=== PATIENT | female | born 1960 | race Caucasian/White ===

== ENCOUNTER → 2020-10-22 14:46 | Outpatient (CLI) | payer OTHER, SELFPAY ==
[2020-10-22 15:43] LABS: Uric Acid 4.6 mg/dl (2.5-6.2)
[2020-10-22 15:56] LABS: Erythrocyte Sedimentation Rate 24 mm/hr (0-30)
[2020-10-24 08:25] LABS: RA Latex Turbid. <10.0 IU/mL (0.0-13.9)
[2020-10-24 19:11] LABS: Antinuclear Antibodies, IFA Negative (.)
== END ==
PROVIDERS: Visit Provider Family Medicine
DX: M15.4 Erosive (osteo)arthritis (principal)
CPT/HCPCS: 84550; 85651; 86038; 86431

== ENCOUNTER → 2021-01-28 09:55 | Outpatient (POV) | payer OTHER, SELFPAY ==
[2021-01-28 10:46] VITALS: BP 153/93; PULSE 100; RESP 18; O2SAT 98; BMI 24.9
--- NOTE | 2021-01-28 11:09 | HMH.PMCON ---
Assessment and Plan (1) Lumbar radiculopathy Status: Acute Category: Medical Code(s): M54.16 - Radiculopathy, lumbar region (2) Chronic low back pain Status: Acute Category: Medical Code(s): M54.50 - Low back pain, unspecified; G89.29 - Other chronic pain (3) Spinal stenosis Status: Acute Category: Medical Code(s): M48.00 - Spinal stenosis, site unspecified - Assessment and plan all Dx Assessment and Plan for all problems:: Patient has tried failed physical therapy, chiropractic adjustments, and at home exercises for greater than 6 weeks. Patient is currently being managed by Kennedy 10 mg / 3.5 mg three times a day that is prescribed by Dr. Florin Betancourt. We will schedule the patient for an MRI of her lumbar spine and would like to see her after the MRI. Patient has been instructed to contact the clinic with any concerns before the next appointment. Dr. Felix has reviewed this note and agrees with this plan of care. This note was dictated using voice recognition software and make contain errors or omissions. HPI - Data of Consult Patient: new to practice Consult date: 01/28/21 Requesting Physician: Dr. Florin Betancourt - Consult Narrative Reason for consult: chronic low back pain History of present illness: Ms. Fischer is a 60 year old female who presents today as a new patient. Patient has been referred by Dr. Florin Betancourt for worsening chronic low back pain. Patient says that she has been feeling some increasing pain, numbness, paresthesias on her bilateral posterior thighs, worse on the left, that originates on her low back that started in the last few months. Patient denies any trauma or falls recently. This is worse with prolonged activity. It is also worse when she's getting up or going down to a sitting position. Patient says the pain is relieved when she bends down. Per patient, patient had facet injections 7 years ago that did not help. Patient sees Dr. Remy in [place] who says she has some spinal stenosis. Dr. Remy says that she was not a surgical candidate then, but that was a few years ago. Patient has not had any recent imaging. Patient has tried and failed physical therapy and chiropractic adjustment for greater than 6 weeks in the past. Patient is currently on Kennedy 10/325mg three times a day which relieves some of the discomfort. Markus number is [id number] with an active morphine equivalent of 30. CC: Huyen Cristobal APRN [facility] History I have reviewed the patient's past medical history: Yes Medical History: Reports:: Anxiety, Depression, Hyperlipidemia, Hypertension *Have you ever received a pneumonia vaccine?: No *Have you received a flu vaccine this season?: Yes Other Medical History: Reports: Arthritis - *Social History Smoking Status: Current every day smoker Tobacco Type: cigarettes # Packs/Day (cigarettes): 1 Alcohol Intake: never Substance Use Type: denies use *Occupational Status:: unemployed Housing: other *Travel in the last 8 weeks: None - Psychiatric History Pschychiatric History:: Reports:: Anxiety, Depression Family Hx:: No significant family history Review of Systems - Review of Systems Review of Systems General: No recent weight changes, no fever, no sleep disturbances Respiratory: No cough, no shortness of air, no recurring pulmonary infections Cardiovascular/peripheral vascular: No chest pain, no palpitations, no edema, no shortness of breath Gastrointestinal: No new onset incontinence, normal bowel movements reported Genitourinary: No new onset incontinence Musculoskeletal: Low back pain Psychiatric: [Normal mood/affect] Neurological: [Denies weakness in extremities], [denies balance issues] Meds Home Medications Medication Instructions Recorded Confirmed Type hydrochlorothiazide 12.5 mg tablet 12.5 mg PO DAILY #90 tab 06/28/20 12/13/20 Rx venlafaxine 150 mg 150 mg PO DAILY #90 cap 08/23/20 12/13/20 Rx capsule,extended release 24 hr ator
== END ==
PROVIDERS: Visit Provider Clinical Nurse Specialist Family Health
DX: M54.16 Radiculopathy, lumbar region (principal); M54.50 Low back pain, unspecified; G89.29 Other chronic pain; M48.00 Spinal stenosis, site unspecified
CPT/HCPCS: 99202; G0463

== ENCOUNTER 2023-10-22 11:20 | Outpatient (POV) | payer MEDICAID, SELFPAY ==
--- NOTE | 2023-10-22 11:38 | EXP.PAIN.OV ---
HPI Data of Consult Patient: new to practice Consult date: 10/22/23 Requesting Physician: Esther Marte APRN Primary Care Provider: Florin Betancourt MD Consult Narrative Reason for consult: Low back pain, leg pain History of present illness: Ms. Fischer is a 62 year old female who presents today as a new patient. She is a referral from her primary care office. Today she rates her pain a 10 out of 10. Patient states she has chronic pain throughout her back that does radiate down into her bilateral lower extremities. Patient states this is an aching, throbbing sensation with numbness and tingling and does interfere with her ability perform activities of daily living such as cooking and cleaning. She states that it affects every aspect of her life and she has no quality of life due to the pain. Patient states that pretty much she stays at home and is not able to enjoy any free time with her family or her grandkids due to the pain. Patient has tried oral medications, heat and ice and topicals with minimal relief. Patient did try physical therapy however stated it made no difference of her overall pain. Patient has also had multiple injections in the past that included facet blocks but states this made no improvement. Patient also states that she has been to the chiropractor and that this does at least help provide temporary relief. Patient was seen by neurosurgeon in the past and was told she was not a surgical candidate at that time. Patient is interested in any help we may be able to provide. Patient is currently managed with alprazolam and Modena 10 mg 3 times a day from her PCP. Her Markus has been reviewed and is appropriate. CC: Esther Marte APRN [facility] Disclaimer: The information contained in this section may have been updated after the patient was seen, as this information can be updated by other users. Medical History Scoliosis Spinal stenosis Chronic low back pain Lumbar radiculopathy Essential hypertension Erosive osteoarthritis of multiple sites Mood disorder Anxiety Family History (Updated 10/22/23 @ 11:56 by Miley Bauer RN) Other Unknown family medical history Social History Smoking Status: Current every day smoker tobacco type: cigarettes packs per day: 1 alcohol intake: never substance use type: denies use current occupational status: unemployed Travel in the last 8 weeks: None housing: other Review of Systems Review of Systems Review of systems:: pertinent systems reviewed and negative unless documented below Review of systems (narrative): Review of Systems: General: No recent weight changes, no fever, no sleep disturbances Respiratory: No cough, no shortness of air, no recurring pulmonary infections Cardiovascular/peripheral vascular: No chest pain, no palpitations, no edema, no shortness of breath Gastrointestinal: No new onset incontinence, normal bowel movements reported Genitourinary: No new onset incontinence Musculoskeletal: Low back pain, leg pain Psychiatric: [Normal mood/affect] Neurological: [Denies weakness in extremities], [denies balance issues] Meds Home Medications and Allergies Home Medications ?Medication ?Instructions ?Recorded ?Confirmed ?Type losartan 100 mg tablet See Rx Instructions .Route 09/18/22 10/15/23 Rx .COMPLEX #90 tabs hydrochlorothiazide 12.5 mg tablet 12.5 mg PO DAILY #90 tabs 10/20/22 10/15/23 Rx atorvastatin 20 mg tablet See Rx Instructions .Route 11/24/22 10/15/23 Rx .COMPLEX #90 tabs ezetimibe 10 mg tablet See Rx Instructions .Route 11/24/22 10/15/23 Rx .COMPLEX #90 tabs venlafaxine 150 mg 150 mg PO DAILY #90 caps 11/28/22 10/15/23 Rx capsule,extended release 24 hr bupropion HCl 150 mg 24 hr tablet, 150 mg PO DAILY #90 tabs 12/15/22 10/15/23 Rx extended release metoprolol succinate 200 mg 200 mg PO DAILY #90 tabs 12/15/22 10/15/23 Rx tablet,extended release 24 hr (Toprol XL) alprazolam 0.5 mg tablet (Xanax) 0.5 mg PO BID PRN anxiety #60 tabs 07/23/23 10/15/23 Rx promethazine 25 mg tablet 25 mg PO TID PRN nausea and 08/20/23 10/15/23 Rx vomiting #60 tabs hydrocodone 10 mg-acetaminophen See Rx Instructions .Route 10/15/23 10/15/23 Rx 325 mg tablet .COMPLEX #90 tabs New Prescriptions to Start Prescriptions: Allergies Allergy/AdvReac Type Severity Reaction Status Date / Time amoxicillin [From Augmentin] AdvReac Severe Swelling Verified 10/15/23 09:37 of Hands clavulanic acid AdvReac Severe Swelling Verified 10/15/23 09:37 [From Augmentin] of Hands Sulfa (Sulfonamide AdvReac Severe Hives Verified 10/15/23 09:37 Antibiotics) Objective Narrative: Physical Exam: General: Alert and oriented x3, no acute distress, pleasant and cooperative Lungs: Respirations even and unlabored, symmetrical chest expansion Eyes: PERRL Musculoskeletal: Flexion and extension of lumbar [spine] somewhat guarded secondary to pain, [antalgic gait noted] Neurological: Speech clear, no gross sensory deficit Additional findings Additional findings: Lumbar MRI spine with and without contrast Findings: Study detail significant degraded by patient motion despite repetition of sequences and repeated counseling of the patient. Severe level of rotary scoliotic curvature with advanced osteoarthritic degeneration and degenerative disc disease. Marrow signal is generally age-appropriate. Distal cord and conus medullaris have a grossly normal appearance with the tip of the conus at the level of T1-T2 No significant spinal stenosis from T9-10 through T12-L1 L1-2: Advanced degeneration of the disc with leftward shift of L2 relative L1. Mild circumferential disc bulge. Mild ligamentous hypertrophy and facet arthropathy. These factors resulted in mild spinal stenosis to 10 mm. Left foraminal stenosis by endplate osteophyte/disc complex. L2-L3: Severe degeneration of the disc with a moderate concentric disc bulge. Moderate ligamentum hypertrophy and facet arthropathy contouring the thecal sac. Moderate spinal stenosis to 8 to 9 mm. Bilateral foraminal stenosis by endplate osteophyte/disc complex, left greater than right. L3-L4: Severe degeneration of the disc with mild concentric disc bulge partially overlaid by endplate spur. Moderate ligamentous hypertrophy and facet arthropathy. Moderate spinal stenosis to 7 mm. Bilateral foraminal stenosis by endplate osteophyte/disc complex left greater than right L4-L5: Disc desiccation with mild degenerative narrowing. Large concentric disc bulge extending slightly above and below the level of the disc space. Severe ligamentous hypertrophy and facet arthropathy triangulating the thecal sac. These factors contribute to severe Spinal stenosis narrowing the thecal sac to about 4 mm in the midline. Severe right and mild left foraminal stenosis by endplate osteophyte/disc complex L5-S1: Desiccation and mild degenerative narrowing of the disc with a mild concentric disc bulge augmented by a central protrusion. Moderate ligamentous hypertrophy. Severe hypertrophic facet arthropathy disorder in the thecal sac. These factors resulted in moderate spinal stenosis to 8 mm. Mild right and moderate left foraminal stenosis. Assessment and Plan *Assessment and plan (1) Lumbar radiculopathy: Status: Acute Category: Medical Code(s): M54.16 - Radiculopathy, lumbar region (2) Chronic low back pain: Status: Acute Qualifiers: Back pain laterality: midline Sciatica presence: with sciatica Sciatica laterality: sciatica laterality unspecified Qualified Code(s): M54.40 - Lumbago with sciatica, unspecified side Category: Medical Code(s): M54.50 - Low back pain, unspecified; G89.29 - Other chronic pain (3) Spinal stenosis: Status: Acute Qualifiers: Spinal region: unspecified Qualified Code(s): M48.00 - Spinal stenosis, site unspecified Category: Medical Code(s): M48.00 - Spinal stenosis, site unspecified (4) Scoliosis: Status: Acute Category: Medical Code(s): M41.9 - Scoliosis, unspecified (5) Degenerative disc disease, lumbar: Status: Acute Category: Medical Code(s): M51.36 - Other intervertebral disc degeneration, lumbar region Plan Patient is experiencing severe pain throughout her low back and legs with limited range of motion of her lumbar spine. I did discuss at length with the patient that she may benefit from lumbar epidural steroid injection as well as intrathecal pain pump trial. Risk and benefits and educational handouts were given regarding these options and she would like to proceed forward with both. Patient has tried and failed conservative therapy including continued at home stretching exercise for longer than 12 weeks. Patient does have severe scoliosis and severe narrowing multilevel of her lumbar spine. Patient will be sent for psychological evaluation and if she is deemed an appropriate candidate we will proceed forward with a intrathecal pain pump trial in future. I will also submit for a lumbar epidural steroid injection at L4-L5 under fluoroscopy. Patient has been instructed to contact the clinic with any concerns before the next appointment. Dr. Felix has reviewed this note and agrees with this plan of care. This note was dictated using voice recognition software and make contain errors or omissions. All injections are used with Lidocaine or Bupivacaine and Depo Medrol.
[2023-10-22 11:55] VITALS: BP 133/53; PULSE 74; RESP 18; O2SAT 97; BMI 25.7
== END 2023-10-22 23:59 | disposition home or self-care (01) ==
LOC: SC.PAIN 11:21
PROVIDERS: PCP Family Medicine; Visit Provider Nurse Practitioner Family
DX: M51.16 Intervertebral disc disorders with radiculopathy, lumbar region (principal); M48.00 Spinal stenosis, site unspecified; M41.9 Scoliosis, unspecified; F17.210 Nicotine dependence, cigarettes, uncomplicated; Z73.89 Other problems related to life management difficulty; Z79.899 Other long term (current) drug therapy
CPT/HCPCS: 99202; G0463

== ENCOUNTER 2023-11-10 09:19 | Day surgery (SDC) | payer MEDICAID, SELFPAY ==
[2023-11-10 09:30] VITALS: BP 142/80; PULSE 83; RESP 16; TEMP 36.4; O2SAT 96; BMI 25.7
[2023-11-10] MEDS: methylPREDNISolone ACETATE 80MG/ML VIAL 80 MG (09:46)
[2023-11-10 09:49] VITALS: BP 157/74; PULSE 88; RESP 18; O2SAT 96
[2023-11-10 09:50] VITALS: BP 157/74; PULSE 89; RESP 18; O2SAT 96
[2023-11-10 09:59] VITALS: BP 145/71; PULSE 60; RESP 18; O2SAT 96
--- NOTE | 2023-11-10 10:13 | EXP.PAIN.PRO ---
Procedure Date: 11/10/23 Time: 09:30 Anesthesiologist:: Felipe Buckner CRNA Complications:: None Pre-procedure Diagnosis:: Degenerative disc lumbar spine multilevels. Lumbar radiculopathy. Post-procedure Diagnosis:: Same. Indications for Procedure:: Patient is a very pleasant 62-year-old female that comes our clinic today for lumbar epidural steroid injection at the L4-5 level. Patient describes low back pain is constant, dull, aching. She also reports bilateral hip and leg radicular symptoms in the hamstrings. She rates her pain 8/10. Procedure Details:: Procedure: Lumbar epidural steroid injection under fluoroscopy Informed consent was obtained and the risks and benefits of the procedure were explained to the patient. The patient was taken to the procedure room and noninvasive monitors placed, including noninvasive blood pressure cuff and pulse oximeter. The back was viewed using C-arm Fluoroscopy and prepped using Chloraprep as a cleansing solution and the L4-L5 interspace was palpated. Skin and subcutaneous tissues were anesthetized using lidocaine 1.5% and a 25-gauge needle. After this, an 18-gauge Touhy epidural needle was placed into the L4-L5 interspace and advanced using fluoroscopic guidance and loss of resistance to air until the epidural space was encountered. After confirmation of needle placement in the epidural space, with dye, a solution containing normal saline, 3 mL and Depo-Medrol 80 mg were incrementally injected into the lumbar epidural space. The patient tolerated the procedure well with no complications. The patient was observed in the Pain Clinic and then discharged home neurologically intact. Plan and Disposition:: Patient was discharged without incident.
--- NOTE | 2023-11-10 10:15 | EXP.PAIN.PRO ---
Procedure Date: 11/10/23 Time: 09:50 Anesthesiologist:: Felipe Buckner CRNA Complications:: None
== END 2023-11-10 09:59 | disposition home or self-care (01) ==
PROVIDERS: PCP Family Medicine; Visit Provider Nurse Anesthetist, Certified Registered
DX: M51.16 Intervertebral disc disorders with radiculopathy, lumbar region (principal)
CPT/HCPCS: 62323; J1010

== ENCOUNTER 2023-12-17 08:52 | Outpatient (POV) | payer MEDICAID, SELFPAY ==
--- NOTE | 2023-12-17 09:40 | EXP.PAIN.SOA ---
[facility] Disclaimer: The information contained in this section may have been updated after the patient was seen, as this information can be updated by other users. Medical History Scoliosis Spinal stenosis Chronic low back pain Lumbar radiculopathy Essential hypertension Erosive osteoarthritis of multiple sites Mood disorder Anxiety Family History Other Unknown family medical history Social History Smoking Status: Current every day smoker tobacco type: cigarettes packs per day: 1 alcohol intake: never substance use type: denies use current occupational status: unemployed Travel in the last 8 weeks: None housing: other PM Subjective & Objective Subjective Subjective:: Patient is a pleasant 63-year-old female who presents today for follow-up of lumbar epidural steroid injection L4-L5 on 11/10/2023. Today she rates her pain a 4 out of 10. She states that she has had at least 75% improvement following this injection and feels like it still helping. Patient does state that she is felt so well that she has overdone it at times with certain activities. Patient states she has been able to do more around her home than she has done for years. She is prescribed alprazolam and Secor from her PCP. Her Markus has been reviewed and is appropriate. Review of Systems: General: No recent weight changes, no fever, no sleep disturbances Respiratory: No cough, no shortness of air, no recurring pulmonary infections Cardiovascular/peripheral vascular: No chest pain, no palpitations, no edema, no shortness of breath Gastrointestinal: No new onset incontinence, normal bowel movements reported Genitourinary: No new onset incontinence Musculoskeletal: Low back pain Psychiatric: [Normal mood/affect] Neurological: [Denies weakness in extremities], [denies balance issues] Pain at rest (0-10 scale): 4 Objective Objective:: Physical Exam: General: Alert and oriented x3, no acute distress, pleasant and cooperative Lungs: Respirations even and unlabored, symmetrical chest expansion Eyes: PERRL Musculoskeletal: Flexion and extension of lumbar [spine] somewhat guarded secondary to pain, [antalgic gait noted] Neurological: Speech clear, no gross sensory deficit Has patient had previous pain injection?: Yes Percent improvement in pain since last injection: 75% Conservative treatment options previously tried: Home exercise plan Length of treatment: Longer than 12 weeks Meds Home Medications and Allergies Home Medications ?Medication ?Instructions ?Recorded ?Confirmed ?Type atorvastatin 20 mg tablet See Rx Instructions .Route 11/24/22 12/10/23 Rx .COMPLEX #90 tabs ezetimibe 10 mg tablet See Rx Instructions .Route 11/24/22 12/10/23 Rx .COMPLEX #90 tabs venlafaxine 150 mg 150 mg PO DAILY #90 caps 11/28/22 12/10/23 Rx capsule,extended release 24 hr bupropion HCl 150 mg 24 hr tablet, 150 mg PO DAILY #90 tabs 12/15/22 12/10/23 Rx extended release metoprolol succinate 200 mg 200 mg PO DAILY #90 tabs 12/15/22 12/10/23 Rx tablet,extended release 24 hr (Toprol XL) promethazine 25 mg tablet 25 mg PO TID PRN nausea and 08/20/23 12/10/23 Rx vomiting #60 tabs losartan 100 mg tablet See Rx Instructions .Route 10/27/23 12/10/23 Rx .COMPLEX #90 tabs alprazolam 0.5 mg tablet (Xanax) 0.5 mg PO TID PRN anxiety #90 tabs 11/12/23 12/10/23 Rx hydrochlorothiazide 12.5 mg tablet 12.5 mg PO DAILY #90 tabs 11/12/23 12/10/23 Rx hydrocodone 10 mg-acetaminophen See Rx Instructions .Route 12/10/23 12/10/23 Rx 325 mg tablet .COMPLEX #90 tabs New Prescriptions to Start Prescriptions: Allergies Allergy/AdvReac Type Severity Reaction Status Date / Time amoxicillin [From Augmentin] AdvReac Severe Swelling Verified 12/10/23 09:46 of Hands clavulanic acid AdvReac Severe Swelling Verified 12/10/23 09:46 [From Augmentin] of Hands Sulfa (Sulfonamide AdvReac Severe Hives Verified 12/10/23 09:46 Antibiotics) Assessment and Plan *Assessment and plan (1) Degenerative disc disease, lumbar: Status: Acute Category: Medical Code(s): M51.36 - Other intervertebral disc degeneration, lumbar region (2) Lumbar radiculopathy: Status: Acute Category: Medical Code(s): M54.16 - Radiculopathy, lumbar region Plan Patient has had significant improvement and does not require any additional interventions at this time. Patient will return to clinic in 6 weeks for reevaluation of symptoms and plan of care. Patient has been instructed to contact the clinic with any concerns before the next appointment. Dr. Felix has reviewed this note and agrees with this plan of care. This note was dictated using voice recognition software and make contain errors or omissions. All injections are used with Lidocaine or Bupivacaine and Depo Medrol.
[2023-12-17 09:56] VITALS: BP 152/85; PULSE 81; RESP 18; O2SAT 95; BMI 25.2
== END 2023-12-17 23:59 | disposition home or self-care (01) ==
LOC: SC.PAIN 08:54
PROVIDERS: PCP Family Medicine; Visit Provider Nurse Practitioner Family
DX: M51.16 Intervertebral disc disorders with radiculopathy, lumbar region (principal); F17.210 Nicotine dependence, cigarettes, uncomplicated
CPT/HCPCS: 99212; G0463

== ENCOUNTER 2024-01-13 11:32 | Outpatient (POV) | payer MEDICAID, SELFPAY ==
--- NOTE | 2024-01-13 11:46 | A.OFFVIS_ITS ---
[facility] [place] Disclaimer: The information contained in this section may have been updated after the patient was seen, as this information can be updated by other users. Medical History Scoliosis Spinal stenosis Chronic low back pain Lumbar radiculopathy Essential hypertension Erosive osteoarthritis of multiple sites Mood disorder Anxiety Family History Other Unknown family medical history Social History Smoking Status: Current every day smoker tobacco type: cigarettes packs per day: 1 alcohol intake: never substance use type: denies use current occupational status: unemployed Travel in the last 8 weeks: None housing: other PM Subjective & Objective Subjective Subjective:: Patient is a pleasant 63-year-old female who presents today for worsening pain in. Today she rates her pain a 9 out of 10. She does state all of this pain is just along her left buttocks area and that it does stay right there no radiating symptoms into her legs. She states that it is an aching, throbbing sensation is worse with prolonged positioning such as sitting. She states that the increased pressure causes significant pain and does interfere with her ability perform activities of daily living such as cooking and cleaning. Patient did previously have a lumbar epidural on November 09 that did provide 75% improvement and she still feels like this is working well. She does state that she has added dilemma because her insurance she is losing at the end of December and that she is meeting with a specialist to see what she can do however it appears that as of right now she will be without insurance through that month and it will start back in February.She is prescribed alprazolam and Tamiment from her PCP. Her Markus has been reviewed and is appropriate. Review of Systems: General: No recent weight changes, no fever, no sleep disturbances Respiratory: No cough, no shortness of air, no recurring pulmonary infections Cardiovascular/peripheral vascular: No chest pain, no palpitations, no edema, no shortness of breath Gastrointestinal: No new onset incontinence, normal bowel movements reported Genitourinary: No new onset incontinence Musculoskeletal: Left buttocks pain Psychiatric: [Normal mood/affect] Neurological: [Denies weakness in extremities], [denies balance issues] Pain at rest (0-10 scale): 9 Objective Objective:: Physical Exam: General: Alert and oriented x3, no acute distress, pleasant and cooperative Lungs: Respirations even and unlabored, symmetrical chest expansion Eyes: PERRL Musculoskeletal: Flexion and extension of lumbar [spine] somewhat guarded secondary to pain, [antalgic gait noted] extreme point tenderness along the left piriformis muscle Neurological: Speech clear, no gross sensory deficit Has patient had previous pain injection?: No Conservative treatment options previously tried: Home exercise plan Length of treatment: Longer than 12 weeks Meds Home Medications and Allergies Home Medications ?Medication ?Instructions ?Recorded ?Confirmed ?Type promethazine 25 mg tablet 25 mg PO TID PRN nausea and 08/20/23 12/17/23 Rx vomiting #60 tabs losartan 100 mg tablet See Rx Instructions .Route 10/27/23 12/17/23 Rx .COMPLEX #90 tabs alprazolam 0.5 mg tablet (Xanax) 0.5 mg PO TID PRN anxiety #90 tabs 11/12/23 12/17/23 Rx hydrochlorothiazide 12.5 mg tablet 12.5 mg PO DAILY #90 tabs 11/12/23 12/17/23 Rx atorvastatin 20 mg tablet See Rx Instructions .Route 12/28/23 Rx .COMPLEX #90 tabs ezetimibe 10 mg tablet See Rx Instructions .Route 12/28/23 Rx .COMPLEX #90 tabs bupropion HCl 150 mg 24 hr tablet, 150 mg PO DAILY #90 tabs 01/06/24 Rx extended release metoprolol succinate 200 mg 200 mg PO DAILY #90 tabs 01/06/24 Rx tablet,extended release 24 hr (Toprol XL) venlafaxine 150 mg 150 mg PO DAILY #90 caps 01/06/24 Rx capsule,extended release 24 hr hydrocodone 10 mg-acetaminophen See Rx Instructions .Route 01/07/24 Rx 325 mg tablet .COMPLEX #90 tabs New Prescriptions to Start Prescriptions: Allergies Allergy/AdvReac Type Severity Reaction Status Date / Time amoxicillin (From Augmentin) AdvReac Severe Swelling Verified 12/10/23 09:46 of Hands clavulanic acid (From AdvReac Severe Swelling Verified 12/10/23 09:46 Augmentin) of Hands Sulfa (Sulfonamide AdvReac Severe Hives Verified 12/10/23 09:46 Antibiotics) Assessment and Plan *Assessment and plan (1) Piriformis syndrome of left side: Status: Acute Category: Medical Code(s): G57.02 - Lesion of sciatic nerve, left lower limb (2) Left buttock pain: Status: Acute Category: Medical Code(s): M79.18 - Myalgia, other site (3) Myofascial pain on left side: Status: Acute Category: Medical Code(s): M79.18 - Myalgia, other site Plan Patient is experiencing significant pain in her left buttocks with extreme point tenderness along her left piriformis muscle. We have discussed the possibility of this injection in the past due to this being a chronic pain however previously her overall low back and leg symptoms were more bothersome so we put this off. Today due to the fact that this is the only thing causing significant disability and pain I have discussed with the patient that I do believe she would benefit from a left piriformis injection. Risk and benefits were discussed with patient and she would like to proceed forward with this plan of care. Patient has tried and failed conservative therapy including continued at home stretching exercise for longer than 12 weeks. We will schedule the patient for a left piriformis injection. This injection will be done without fluoroscopic guidance or ultrasound. Patient has been instructed to contact the clinic with any concerns before the next appointment. Dr. Felix has reviewed this note and agrees with this plan of care. This note was dictated using voice recognition software and make contain errors or omissions. All injections are used with Lidocaine or Bupivacaine and Depo Medrol.
[2024-01-13 12:56] VITALS: BP 113/68; PULSE 75; RESP 16; O2SAT 98; BMI 25.2
== END 2024-01-13 23:59 | disposition home or self-care (01) ==
LOC: SC.PAIN 11:33
PROVIDERS: PCP Family Medicine; Visit Provider Nurse Practitioner Family
DX: G57.02 Lesion of sciatic nerve, left lower limb (principal); M79.18 Myalgia, other site; F17.210 Nicotine dependence, cigarettes, uncomplicated; Z73.89 Other problems related to life management difficulty
CPT/HCPCS: 99212; G0463

== ENCOUNTER 2024-01-19 10:12 | Day surgery (SDC) | payer MEDICAID, SELFPAY ==
[2024-01-19 10:30] VITALS: BP 148/58; PULSE 76; RESP 16; TEMP 36.4; O2SAT 100; BMI 24.7
[2024-01-19] MEDS: IOPAMIDOL-200 (41%);10ML VIAL 10 ML IV (10:42)
[2024-01-19] MEDS: methylPREDNISolone ACETATE 80MG/ML VIAL 80 MG (10:43)
[2024-01-19] MEDS: BUPIVACAINE 0.25% 10ML INJ 25 MG IJ (10:43)
[2024-01-19] MEDS: LIDOCAINE 1% 5ML PF VIAL 5 ML (10:43)
[2024-01-19 10:44] VITALS: BP 146/95; PULSE 79; RESP 18; O2SAT 96
[2024-01-19 10:45] VITALS: BP 146/95; PULSE 79; RESP 18; O2SAT 97
[2024-01-19 10:53] VITALS: BP 130/79; PULSE 73; RESP 16; O2SAT 97
--- NOTE | 2024-01-19 13:19 | P.PCN_ITS ---
Procedure Date: 01/19/24 Time: 09:30 Anesthesiologist:: Felipe Buckner CRNA Complications:: None Pre-procedure Diagnosis:: Left piriformis syndrome Post-procedure Diagnosis:: Same Indications for Procedure:: Patient is a pleasant 63-year-old female comes our clinic today for a left piriformis injection. Patient describes left buttock pain as constant, dull, aching. Patient rates her pain 9/10. She has difficulty sitting. Procedure Details:: Details of procedure explained to the patient. The patient taken procedure room placed in the prone position on fluoroscopy table. The area over the left buttock was cleaned using chlorhexidine as a cleansing solution. Using a 22- gauge 3 and half inch spinal needle and fluoroscopy guidance the left piriformis muscle was accessed with ease. Needle position was confirmed with 0.5 cc of of contrast dye and a lateral spread. After negative aspiration, 4 cc of 1% lidocaine and 40 mg of Depo-Medrol was injected. Patient tolerated procedure without difficulty. There were no complications. Plan and Disposition:: Patient was discharged without incident.
== END 2024-01-19 10:53 | disposition home or self-care (01) ==
LOC: SC.PAINP 10:13
PROVIDERS: PCP Family Medicine; Visit Provider Nurse Anesthetist, Certified Registered
DX: G57.02 Lesion of sciatic nerve, left lower limb (principal)
CPT/HCPCS: 20552; 77002; J1010; Q9966

== ENCOUNTER 2024-03-17 11:33 | Outpatient (POV) | payer BC, SELFPAY ==
--- NOTE | 2024-03-17 11:58 | EXP.PAIN.SOA ---
[facility] Disclaimer: The information contained in this section may have been updated after the patient was seen, as this information can be updated by other users. Medical History Scoliosis Spinal stenosis Chronic low back pain Lumbar radiculopathy Essential hypertension Erosive osteoarthritis of multiple sites Mood disorder Anxiety Family History Other Unknown family medical history Social History (Updated 03/10/24 @ 10:37 by Ana Maria Rodriguez MA) Smoking Status: Current every day smoker tobacco type: cigarettes packs per day: 1 alcohol intake: never substance use type: denies use current occupational status: other Travel in the last 8 weeks: None housing: other PM Subjective & Objective Subjective Subjective:: Patient is a pleasant 63-year-old female who presents today for worsening back pain. Today she rates her pain a 8 out of 10. She denies any new injury or trauma. She is experiencing worsening pain in her back that does radiate down into her bilateral lower extremities. Patient states this is an aching, throbbing sensation with numbness and tingling and does interfere with her ability perform activities of daily living such as cooking and cleaning. Patient did previously have a lumbar epidural that did provide significant relief of 75%. This injection was done back in October and did last at least 3 months. Patient was experiencing worsening pain in January however had issues with her insurance and was unable to get scheduled for a repeat injection. Today she states that she has worked out of her insurance issues and would like to proceed forward because her pain is so severe. Patient has tried oral medications, heat and ice and topicals with minimal relief. Patient did try physical therapy however stated it made no difference of her overall pain. Patient has tried chiropractor therapy as well with minimal relief and has been to a neurosurgeon who was not recommending surgical intervention. Patient is currently managed with alprazolam and Sutter 10 mg 3 times a day from her PCP. Her Markus has been reviewed and is appropriate. Review of Systems: General: No recent weight changes, no fever, no sleep disturbances Respiratory: No cough, no shortness of air, no recurring pulmonary infections Cardiovascular/peripheral vascular: No chest pain, no palpitations, no edema, no shortness of breath Gastrointestinal: No new onset incontinence, normal bowel movements reported Genitourinary: No new onset incontinence Musculoskeletal: Low back pain, bilateral leg pain Psychiatric: [Normal mood/affect] Neurological: [Denies weakness in extremities], [denies balance issues] Pain at rest (0-10 scale): 8 Objective Objective:: Physical Exam: General: Alert and oriented x3, no acute distress, pleasant and cooperative Lungs: Respirations even and unlabored, symmetrical chest expansion Eyes: PERRL Musculoskeletal: Flexion and extension of lumbar [spine] somewhat guarded secondary to pain, [antalgic gait noted] positive leg raise Neurological: Speech clear, no gross sensory deficit Has patient had previous pain injection?: No Conservative treatment options previously tried: Home exercise plan Length of treatment: Longer than 12 weeks Meds Home Medications and Allergies Home Medications ?Medication ?Instructions ?Recorded ?Confirmed ?Type promethazine 25 mg tablet 25 mg PO TID PRN nausea and 08/20/23 03/10/24 Rx vomiting #60 tabs losartan 100 mg tablet See Rx Instructions .Route 10/27/23 03/10/24 Rx .COMPLEX #90 tabs hydrochlorothiazide 12.5 mg tablet 12.5 mg PO DAILY #90 tabs 11/12/23 03/10/24 Rx atorvastatin 20 mg tablet See Rx Instructions .Route 12/28/23 03/10/24 Rx .COMPLEX #90 tabs ezetimibe 10 mg tablet See Rx Instructions .Route 12/28/23 03/10/24 Rx .COMPLEX #90 tabs bupropion HCl 150 mg 24 hr tablet, 150 mg PO DAILY #90 tabs 01/06/24 03/10/24 Rx extended release metoprolol succinate 200 mg 200 mg PO DAILY #90 tabs 01/06/24 03/10/24 Rx tablet,extended release 24 hr (Toprol XL) venlafaxine 150 mg 150 mg PO DAILY #90 caps 01/06/24 03/10/24 Rx capsule,extended release 24 hr alprazolam 0.5 mg tablet (Xanax) 0.5 mg PO TID PRN anxiety #90 tabs 02/11/24 03/10/24 Rx hydrocodone 10 mg-acetaminophen See Rx Instructions .Route 03/10/24 03/10/24 Rx 325 mg tablet .COMPLEX #90 tabs New Prescriptions to Start Prescriptions: Allergies Allergy/AdvReac Type Severity Reaction Status Date / Time amoxicillin (From Augmentin) AdvReac Severe Swelling Verified 03/10/24 10:42 of Hands clavulanic acid (From AdvReac Severe Swelling Verified 03/10/24 10:42 Augmentin) of Hands Sulfa (Sulfonamide AdvReac Severe Hives Verified 03/10/24 10:42 Antibiotics) Assessment and Plan *Assessment and plan (1) Lumbar radiculopathy: Status: Acute Category: Medical Code(s): M54.16 - Radiculopathy, lumbar region (2) Chronic low back pain: Status: Acute Qualifiers: Back pain laterality: midline Sciatica presence: with sciatica Sciatica laterality: sciatica laterality unspecified Qualified Code(s): M54.40 - Lumbago with sciatica, unspecified side Category: Medical Code(s): M54.50 - Low back pain, unspecified; G89.29 - Other chronic pain (3) Degenerative disc disease, lumbar: Status: Acute Category: Medical Code(s): M51.369 - Other intervertebral disc degeneration, lumbar region without mention of lumbar back pain or lower extremity pain Plan Patient is experiencing worsening pain in her low back with numbness and tingling into her lower extremities. Patient did have limited range of motion of her lumbar spine with a positive leg raise. I did discuss with patient that I do believe they would benefit from a lumbar epidural steroid injection. Risk and benefits were discussed with patient and the patient would like to proceed forward with this plan of care. Patient is not on any blood thinners. Patient has tried and failed conservative therapy including continued at home stretching exercise for longer than 12 weeks between injections. Patient did previously have a lumbar epidural back in October that provided 75% relief and lasted longer than 3 months. We will schedule the patient for an LESI L4-L5 under fluoroscopy. Patient has been instructed to contact the clinic with any concerns before the next appointment. Dr. Felix has reviewed this note and agrees with this plan of care. This note was dictated using voice recognition software and make contain errors or omissions. All injections are used with Lidocaine, Bupivacaine and Depo Medrol. Occasionally urine drug screen is needed to verify patient's compliance with our office pain contract. This is ordered based off specific treatments related to chronic pain with the potential to abuse certain medications.
[2024-03-17 12:19] VITALS: BP 132/71; PULSE 82; RESP 18; O2SAT 96; BMI 24.9
== END 2024-03-17 23:59 | disposition home or self-care (01) ==
LOC: SC.PAIN 11:33
PROVIDERS: PCP Family Medicine; Visit Provider Nurse Practitioner Family
DX: M51.16 Intervertebral disc disorders with radiculopathy, lumbar region (principal); M54.40 Lumbago with sciatica, unspecified side; F17.210 Nicotine dependence, cigarettes, uncomplicated; Z73.89 Other problems related to life management difficulty
CPT/HCPCS: 99212; G0463

== ENCOUNTER 2024-04-05 07:42 | Day surgery (SDC) | payer BC, SELFPAY ==
[2024-04-05 08:18] VITALS: BP 175/88; PULSE 75; RESP 16; TEMP 36.4; O2SAT 97; BMI 24.9
[2024-04-05] MEDS: methylPREDNISolone ACETATE 80MG/ML VIAL 80 MG (08:25)
[2024-04-05 08:33] VITALS: BP 135/74; PULSE 71; RESP 16; O2SAT 96
[2024-04-05 08:52] VITALS: BP 153/98; PULSE 75; RESP 18; O2SAT 98
[2024-04-05 08:56] VITALS: BP 153/98; PULSE 75; RESP 18; O2SAT 98
--- NOTE | 2024-04-05 09:10 | EXP.PAIN.PRO ---
Procedure Date: 04/05/24 Time: 08:30 Anesthesiologist:: Felipe Buckner CRNA Complications:: None Pre-procedure Diagnosis:: Degenerative disc lumbar spine multilevels. Lumbar radiculopathy. Post-procedure Diagnosis:: Same. Indications for Procedure:: Patient is a pleasant 63-year-old female who comes our clinic today for lumbar epidural steroid injection. Patient describes low lumbar back pain as well as bilateral hip and leg radicular symptoms with time. She rates her pain 7/10. Procedure Details:: Procedure: Lumbar epidural steroid injection under fluoroscopy Informed consent was obtained and the risks and benefits of the procedure were explained to the patient. The patient was taken to the procedure room and noninvasive monitors placed, including noninvasive blood pressure cuff and pulse oximeter. The back was viewed using C-arm Fluoroscopy and prepped using Chloraprep as a cleansing solution and the L4-L5 interspace was palpated. Skin and subcutaneous tissues were anesthetized using lidocaine 1.5% and a 25-gauge needle. After this, an 18-gauge Touhy epidural needle was placed into the L4-L5 interspace and advanced using fluoroscopic guidance and loss of resistance to air until the epidural space was encountered. After confirmation of needle placement in the epidural space, with dye, a solution containing normal saline, 3 mL and Depo-Medrol 80 mg were incrementally injected into the lumbar epidural space. The patient tolerated the procedure well with no complications. The patient was observed in the Pain Clinic and then discharged home neurologically intact. Plan and Disposition:: Patient was discharged without incident.
== END 2024-04-05 08:33 | disposition home or self-care (01) ==
LOC: SC.PAINP 07:43
PROVIDERS: PCP Family Medicine; Visit Provider Nurse Anesthetist, Certified Registered
DX: M51.16 Intervertebral disc disorders with radiculopathy, lumbar region (principal)
CPT/HCPCS: 62323; J1010

== ENCOUNTER 2024-04-21 08:51 | Outpatient (POV) | payer BC, SELFPAY ==
--- NOTE | 2024-04-21 09:27 | A.OFFVIS_ITS ---
[facility] Disclaimer: The information contained in this section may have been updated after the patient was seen, as this information can be updated by other users. Medical History Scoliosis Spinal stenosis Chronic low back pain Lumbar radiculopathy Essential hypertension Erosive osteoarthritis of multiple sites Mood disorder Anxiety Family History Other Unknown family medical history Social History (Updated 04/08/24 @ 09:56 by Ana Maria Rodriguez MA) Smoking Status: Current every day smoker tobacco type: cigarettes packs per day: 1 alcohol intake: never substance use type: denies use current occupational status: other Travel in the last 8 weeks: None housing: other PM Subjective & Objective Subjective Subjective:: Patient is a pleasant 63-year-old female who presents today for follow-up of lumbar epidural steroid injection L4-L5 on 04/05/2024. Today she rates her pain a 8 out of 10. She denies any new injury or trauma. She does state that this injection did not do as well as her last 1 that she had in October providing 75% relief and lasted 3 months. She does feel like the pain is a little bit different and has moved. Patient is stating that it is more in her low back and hips with the left side still being the worst side and that she has a pulling sensation into her upper thighs. It continues to interfere with her ability perform activities of daily living such as cooking and cleaning. Patient has tried oral medications, heat and ice and topicals with minimal relief. Patient has tried both physical therapy and chiropractor therapy with minimal relief and is not a candidate for surgical intervention from per neurosurgeon. Patient is currently managed with alprazolam and Marshall 10 mg 3 times a day from her PCP. Her Markus has been reviewed and is appropriate. Review of Systems: General: No recent weight changes, no fever, no sleep disturbances Respiratory: No cough, no shortness of air, no recurring pulmonary infections Cardiovascular/peripheral vascular: No chest pain, no palpitations, no edema, no shortness of breath Gastrointestinal: No new onset incontinence, normal bowel movements reported Genitourinary: No new onset incontinence Musculoskeletal: Low back pain, bilateral hip pain Psychiatric: [Normal mood/affect] Neurological: [Denies weakness in extremities], [denies balance issues] Pain at rest (0-10 scale): 8 Objective Objective:: Physical Exam: General: Alert and oriented x3, no acute distress, pleasant and cooperative Lungs: Respirations even and unlabored, symmetrical chest expansion Eyes: PERRL Musculoskeletal: Flexion and extension of lumbar [spine] somewhat guarded secondary to pain, [antalgic gait noted] point tenderness along bilateral SIs with positive bilateral Denise's, Liam's, Gaenslen's, compression and distraction exam Neurological: Speech clear, no gross sensory deficit Has patient had previous pain injection?: Yes Percent improvement in pain since last injection: Unable to determine Conservative treatment options previously tried: Home exercise plan Length of treatment: Longer than 12 weeks Meds Home Medications and Allergies Home Medications ?Medication ?Instructions ?Recorded ?Confirmed ?Type losartan 100 mg tablet See Rx Instructions .Route 10/27/23 04/08/24 Rx .COMPLEX #90 tabs hydrochlorothiazide 12.5 mg tablet 12.5 mg PO DAILY #90 tabs 11/12/23 04/08/24 Rx atorvastatin 20 mg tablet See Rx Instructions .Route 12/28/23 04/08/24 Rx .COMPLEX #90 tabs ezetimibe 10 mg tablet See Rx Instructions .Route 12/28/23 04/08/24 Rx .COMPLEX #90 tabs bupropion HCl 150 mg 24 hr tablet, 150 mg PO DAILY #90 tabs 01/06/24 04/08/24 Rx extended release metoprolol succinate 200 mg 200 mg PO DAILY #90 tabs 01/06/24 04/08/24 Rx tablet,extended release 24 hr (Toprol XL) venlafaxine 150 mg 150 mg PO DAILY #90 caps 01/06/24 04/08/24 Rx capsule,extended release 24 hr alprazolam 0.5 mg tablet (Xanax) 0.5 mg PO TID PRN anxiety #90 tabs 02/11/24 04/08/24 Rx methocarbamol 500 mg tablet 500 mg PO TID #42 tabs 03/23/24 04/08/24 Rx hydrocodone 10 mg-acetaminophen See Rx Instructions .Route 04/08/24 04/08/24 Rx 325 mg tablet .COMPLEX #90 tabs New Prescriptions to Start Prescriptions: Allergies Allergy/AdvReac Type Severity Reaction Status Date / Time amoxicillin (From Augmentin) AdvReac Severe Swelling Verified 04/08/24 09:50 of Hands clavulanic acid (From AdvReac Severe Swelling Verified 04/08/24 09:50 Augmentin) of Hands Sulfa (Sulfonamide AdvReac Severe Hives Verified 04/08/24 09:50 Antibiotics) Assessment and Plan *Assessment and plan (1) Bilateral sacroiliitis: Status: Acute Category: Medical Code(s): M46.1 - Sacroiliitis, not elsewhere classified Plan Patient is experiencing worsening pain along the low back and bilateral hips. They did have limited range of motion of the lumbar spine along with point tenderness along bilateral SI joints and a positive bilateral Denise's, Liam's, Gaenslen's, compression and distraction exam. I did discuss with the patient that I do believe they would benefit from bilateral SI injections. Risk and benefits were discussed with the patient and they would like to proceed forward with this option. Patient has tried and failed conservative therapy including continued at home stretching exercise for longer than 12 weeks. Patient has had ongoing low back pain for longer than a year that continues to cause severe p ain. I will order the patient a compounded cream and send in a 2-week prescription of methocarbamol 750 mg 3 times daily. Patient will be scheduled for bilateral SI injections under fluoroscopy. Patient has been instructed to contact the clinic with any concerns before the next appointment. Dr. Felix has reviewed this note and agrees with this plan of care. This note was dictated using voice recognition software and make contain errors or omissions. All injections are used with Lidocaine or Bupivacaine and Depo Medrol.
[2024-04-21 09:47] VITALS: BP 140/77; PULSE 69; RESP 16; O2SAT 100; BMI 24.9
== END 2024-04-21 23:59 | disposition home or self-care (01) ==
PROVIDERS: PCP Family Medicine; Visit Provider Nurse Practitioner Family
DX: M46.1 Sacroiliitis, not elsewhere classified (principal); F17.210 Nicotine dependence, cigarettes, uncomplicated; Z73.89 Other problems related to life management difficulty
CPT/HCPCS: 99212; G0463

== ENCOUNTER 2024-06-30 11:17 | Outpatient (CLI) | payer OTHER, SELFPAY ==
[2024-06-30 20:10] LABS: HIV Combo NEGATIVE (Negative)
[2024-06-30 20:13] LABS: Hepatitis C Ab Qual. W/ RFX NEGATIVE (Negative)
== END 2024-06-30 23:59 | disposition home or self-care (01) ==
LOC: LAB.DROPOF 07-01 12:57
PROVIDERS: PCP Family Medicine; Visit Provider Family Medicine
DX: Z11.4 Encounter for screening for human immunodeficiency virus [HIV] (principal); Z11.59 Encounter for screening for other viral diseases
CPT/HCPCS: 86803; 87389

== ENCOUNTER 2024-12-12 11:02 | Outpatient (CLI) | payer OTHER, SELFPAY ==
[2024-12-12 17:07] LABS: Uric Acid 4.4 mg/dl (2.5-6.2)
[2024-12-13 12:15] LABS: RA Latex Turbid. <10.0 IU/mL (<14.0)
[2024-12-13 17:11] LABS: Antinuclear Antibodies, IFA Negative (.)
== END 2024-12-12 23:59 ==
LOC: LAB.DROPOF 12-14 11:03
PROVIDERS: PCP Family Medicine; Visit Provider Family Medicine
DX: M41.9 Scoliosis, unspecified (principal)
CPT/HCPCS: 84550; 85651; 86038; 86431